=== PATIENT | male | born 1980 | race Caucasian/White ===

== ENCOUNTER → 2020-12-09 | Outpatient (CLI) | payer BC ==
[2015-11-28 02:50] VITALS: BP 136/76
--- NOTE | 2020-12-09 13:30 | KCIC ---
EXAM: Chest, 2 views. HISTORY: Bronchospasm. COMPARISON: None. FINDINGS: 2 views of the chest are obtained. There is no infiltrate, pleural effusion or pneumothorax . The heart is normal in size. There is a small faint nodular opacity overlying the right upper lobe. IMPRESSION: 1. No acute pulmonary finding. 2. Small faint nodular opacity overlying the right upper lobe. Short-term sonographic follow-up can b e performed to exclude a noncalcified nodule in this location. Electronically signed by: Lisa Page MD (12/09/2020 1:28 PM) [id number]
== END ==
LOC: KCIC 12:40
PROVIDERS: ATTEND Nurse Practitioner Gerontology
DX: J98.01 Acute bronchospasm (principal); F17.200 Nicotine dependence, unspecified, uncomplicated
CPT/HCPCS: 71046

== ENCOUNTER → 2020-12-10 | Outpatient (CLI) | payer BC ==
[2015-11-28 02:50] VITALS: BP 136/76
== END ==
LOC: PF 08:39
PROVIDERS: ATTEND Nurse Practitioner Gerontology
DX: J98.01 Acute bronchospasm (principal)
CPT/HCPCS: 94060; 94640; 94726; 94729; 94664

== ENCOUNTER → 2021-02-28 | Outpatient (CLI) | payer BC ==
[2015-11-28 02:50] VITALS: BP 136/76
--- NOTE | 2021-03-01 19:33 | SLEEP ---
DATE OF STUDY: 02/28/2021 SLEEP STUDY ATTENDING PHYSICIAN: Dr. Vincent Porras. The patient is 40-year-old who weighs 205 pounds with a BMI of 31. The patient's [place] score was 11. The patient had a home sleep study and was found to have mild GAL at an AHI of 7.4 per hour. The patient was clinically symptomatic. As a result, a CPAP titration study was recommended and was performed at [facility]. During the night study, the patient spent 480 minutes in bed and slept for 419 minutes with a sleep efficiency of 87%. Sleep latency was 18 minutes with a REM latency of 23 minutes. Sleep architecture showed normal stage 1 sleep, increased N2 sleep, absent slow wave sleep and normal REM sleep, which is 28% of total sleep time. EKG monitoring revealed a mean heart rate of 88 beats per minute. No sustained arrhythmias observed. No significant PLMs seen. The patient was started on CPAP at a pressure of 5 cm water and titrated up to 15 cm water. At the final pressure, the patient slept for 265 minutes. The patient had supine as well as REM sleep. The patient's AHI was reduced to 1 per hour and oxygen saturation remained above 90%. The patient used full face mask, medium size. IMPRESSION: 1. Sleep apnea diagnosed by previous sleep study. 2. No clinically significant periodic limb movements. RECOMMENDATIONS: 1. CPAP at 15 cm water completely eliminated the patient's sleep apnea and should be used on a nightly basis. 2. Follow up in 4-6 weeks to assess compliance with CPAP and to document clinical improvement. 3. Weight loss to ideal body weight is recommended. 4. Avoid [employer] depressants. 5. Cautioned regarding driving until symptoms of sleep apnea resolve with the use of CPAP. SAI JESUS: Venecia TID: [id number] CC: VINCENT PORRAS MD
== END ==
LOC: RT 19:25
PROVIDERS: ATTEND Family Medicine
DX: G47.33 Obstructive sleep apnea (adult) (pediatric) (principal)
CPT/HCPCS: 95811